=== PATIENT | female | born 1975 | race Caucasian/White ===

== ENCOUNTER 2017-04-05 20:15 | Emergency (ER) | payer OTHER, MEDICAID ==
[~2017-04-05] VITALS: Ht 170.2 cm; Wt 59.0 kg
[~2017-04-05 20:15] MED LIST: AMLODIPINE BESY10 MG PO; BENTYL 10 MG CA10 M1; BUTALB-APAP-CA1 EACH PO; CHLORTHALIDONE25 MG PO; COLACE100 MG; DELSYM COU30 MG/5 M1 PO; DEPAKOTE 250MG250 M1; HYDROCODONE-AP1 EAC6 PO; LASIX 40 MG TAB40 M2; LOPRESSOR50; METHOCARBAMOL500 M2 PO; ONDANSETRON HCL4 M2; ONDANSETRON HCL4 M2 PO; PAXIL10 MG; PAXIL10 MG PO; PENICILLIN V P500 MG PO; PHENERGAN 25 MG25 M1 PO; POTASSIUM20 PO; PREDNISONE 20 M20 M1 PO; PROAIR HFA8.5 GM INH; XANAX 0.5 MG0.5 MG PO; ZOFRAN ODT4 MG PO; ZOFRAN4 MG PO
[2017-04-05 20:45] LABS: HEMOGLOBIN 9.3 gm/dL (12.0-15.0); MCH 25.3 pg (26.0-34.0); MCHC 29.9 g/dL (28.0-37.0); NUCLEATED RBCS 0 /100WBC
[2017-04-05 20:47] LABS: MCV 84.7 fL (80.0-100.0); MPV 8.6 fl. (7.2-11.1); PLATELET COUNT* 180 thou/uL (150-400); RBC 3.66 mil/uL (4.20-5.00); RDW-CV 21.5 % (10.5-14.5); WBC 7.6 thou/uL (4.0-11.0)
[2017-04-05 20:55] LABS: ANION GAP 12 mmol/L (7-16); BUN 6 mg/dL (7-18); CALCIUM 8.4 mg/dL (8.5-10.1); CHLORIDE 106 mmol/L (98-107); CO2 23 mmol/L (21-32); CREATININE 0.8 mg/dL (0.6-1.3); GLUCOSE 74 mg/dL (70-99); POTASSIUM 3.8 mmol/L (3.5-5.1); SODIUM 141 mmol/L (136-145)
[2017-04-05 20:57] LABS: INR 1.1; PROTIME 10.3 Seconds (9.20-11.50)
[2017-04-05 21:13] LABS: ALBUMIN 3.3 g/dL (3.4-5.0); ALKALINE PHOSPHATASE 46 U/L (46-116); CK-MB MASS < 0.5 ng/mL (<0.5-3.6); LIPASE 61 U/L (73-393); MAGNESIUM 1.9 mg/dL (1.8-2.4); NT-PRO BRAIN NAT PEPTIDE 681 pg/mL (<300); SGOT 14 U/L (15-37); SGPT 8 U/L (30-65); TOTAL BILIRUBIN 0.3 mg/dL (<0.1-1.0); TOTAL PROTEIN 6.4 g/dL (6.4-8.2); TROPONIN-I LEVEL <0.06 ng/mL (<0.06)
[2017-04-05 21:20] LABS: ABSOLUTE BASOPHILS 0.1 thou/uL (0.0-0.2); ABSOLUTE EOSINOPHILS 0.2 thou/uL (0.0-0.7); ABSOLUTE MONOCYTES 0.2 thou/uL (0.0-1.2); ABSOLUTE NEUTROPHILS 6.2 thou/uL (1.6-8.1)
[2017-04-05 21:21] LABS: ANISOCYTOSIS 2+; OVALOCYTES Occasional; PLATELET ESTIMATE ADEQUATE
[2017-04-05] MEDS ORDERED: TRAMADOL 50 MG50 MG PO (22:57)
[2017-04-05] MEDS ORDERED: FLEXERIL PO (23:06)
[2017-04-05 23:15] VITALS: BP 143/84
--- NOTE | 2017-04-06 16:43 | EKG ---
[place] [address] ELECTROCARDIOGRAM REPORT Name: BARBIE BHATTI Room: [facility]#: [id number] Admission: 04/05/17 Attend Phys: Discharge: 04/05/17 Date of : 75 Report #: [id number] THIS REPORT FOR: //name// [facility] ED Test Date: 2017-04-05 Test Time: 20:19:43 Pat Name: BARBIE DAVY Department: Room: Gender: F Senior Sales Manager: BUSHRA : 1975 Requested By: Carlos Troncoso Order Number: [id number] MD: Jace Frausto Measurements Intervals [place] Rate: 105 P: 58 [place]: 125 QRS: 50 QRSD: 108 T: 58 QT: 369 QTc: 488 Interpretive Statements Sinus tachycardia Minimal ST depression, anterolateral leads Borderline prolonged QT interval Baseline wander in lead(s) I,II,aVR Compared to ECG 01/03/2017 10:30:26 Sinus rhythm no longer present Left ventricular hypertrophy no longer present Electronically Signed On 04-06-2017 16:43:39 CARE INFORMATION ASSOCIATE by Jace Frausto [email or web address] <ELECTRONICALLY SIGNED> By: Jace Frausto MD, FACC 04/06/17 1643 18 18 Jace Frausto MD, FACC /EPI
== END 2017-04-05 23:15 | disposition home or self-care (01) ==
LOC: M.ERS 20:15
PROVIDERS: Family Medicine
DX: R07.9 Chest pain, unspecified (principal); I10 Essential (primary) hypertension; Z98.890 Other specified postprocedural states; Z88.5 Allergy status to narcotic agent; Z88.6 Allergy status to analgesic agent

== ENCOUNTER 2017-05-14 17:33 | Emergency (ER) | payer OTHER, MEDICAID ==
[~2017-05-14] VITALS: Ht 170.2 cm; Wt 61.2 kg
[~2017-05-14 17:33] MED LIST changes: +FLEXERIL PO; +TRAMADOL 50 MG50 MG PO
[2017-05-14] MEDS ORDERED: LEXAPRO 10 MG T10 M1 PO (17:45)
[2017-05-14] MEDS ORDERED: PROTONIX40 M1 PO (17:45)
[2017-05-14] MEDS ORDERED: ATIVAN1 MG PO (17:46)
[2017-05-14] MEDS ORDERED: TRAMADOL 50 MG50 MG PO (17:54)
[2017-05-14 18:04] VITALS: BP 150/80
== END 2017-05-14 18:07 | disposition home or self-care (01) ==
LOC: M.ERS 17:33
DX: K08.89 Other specified disorders of teeth and supporting structures (principal); I10 Essential (primary) hypertension; I71.9 Aortic aneurysm of unspecified site, without rupture; Z98.890 Other specified postprocedural states; Z88.5 Allergy status to narcotic agent; Z88.6 Allergy status to analgesic agent

== ENCOUNTER 2017-08-18 15:51 | Emergency (ER) | payer OTHER, MEDICAID ==
[~2017-08-18] VITALS: Ht 170.2 cm; Wt 56.7 kg
[~2017-08-18 15:51] MED LIST changes: +ATIVAN1 MG PO; +LEXAPRO 10 MG T10 M1 PO; +PROTONIX40 M1 PO
[2017-08-18] MEDS ORDERED: RANITIDINE HCL300 MG PO (16:09)
[2017-08-18] MEDS ORDERED: PHENERGAN 25 MG25 M1 PO (16:09)
[2017-08-18] MEDS ORDERED: CHLORTHALIDONE25 MG PO (16:09)
[2017-08-18] MEDS ORDERED: NORCO 10-325 T1 EACH PO (16:10)
[2017-08-18] MEDS ORDERED: QUETIAPINE FUM100 MG PO (16:10)
[2017-08-18 16:57] LABS: ABSOLUTE EOSINOPHILS 0.1 thou/uL (0.0-0.7); ABSOLUTE LYMPHOCYTES 0.7 thou/uL (0.8-5.3); ABSOLUTE MONOCYTES 0.4 thou/uL (0.0-1.2); ABSOLUTE NEUTROPHILS 4.1 thou/uL (1.6-8.1); BASOPHILS 0.4 %; EOSINOPHILS 2.5 %; HEMOGLOBIN 10.1 gm/dL (12.0-15.0); LYMPHOCYTES 13.8 %; MCH 24.5 pg (26.0-34.0); MCHC 31.5 g/dL (28.0-37.0); MCV 77.7 fL (80.0-100.0); MONOCYTES 6.7 %; MPV 7.2 fl. (7.2-11.1); NUCLEATED RBCS 0 /100WBC; PLATELET COUNT* 289 thou/uL (150-400); POLYS 76.6 %; RBC 4.11 mil/uL (4.20-5.00); RDW-CV 17.7 % (10.5-14.5); WBC 5.4 thou/uL (4.0-11.0)
[2017-08-18 17:13] LABS: ANION GAP 10 mmol/L (7-16); BUN 9 mg/dL (7-18); CALCIUM 9.1 mg/dL (8.5-10.1); CHLORIDE 104 mmol/L (98-107); CO2 28 mmol/L (21-32); CREATININE 0.8 mg/dL (0.6-1.3); GLUCOSE 84 mg/dL (70-99); SODIUM 142 mmol/L (136-145)
[2017-08-18 17:18] LABS: ALBUMIN 3.7 g/dL (3.4-5.0); ALKALINE PHOSPHATASE 78 U/L (46-116); SGOT 9 U/L (15-37); SGPT 10 U/L (30-65); TOTAL BILIRUBIN 0.3 mg/dL (<0.1-1.0); TOTAL PROTEIN 7.1 g/dL (6.4-8.2); TROPONIN-I LEVEL <0.06 ng/mL (<0.06)
[2017-08-18] MEDS ORDERED: NORCO 5-325 TA1 EACH PO (17:35)
[2017-08-18] MEDS ORDERED: ROBAXIN 750 MG750 M1 PO (17:35)
[2017-08-18 17:45] VITALS: BP 134/85
--- NOTE | 2017-08-19 11:41 | EKG ---
[place] [address] ELECTROCARDIOGRAM REPORT Name: BARBIE BHATTI Room: [facility]#: [id number] Admission: 08/18/17 Attend Phys: Discharge: 08/18/17 Date of : 75 Report #: [id number] THIS REPORT FOR: //name// [facility] ED Test Date: 2017-08-18 Test Time: 16:41:38 Pat Name: BARBIE BHATTI Department: Room: Gender: F Supervisor Special Education: KIKI : 1975 Requested By: Mesha Mesa Order Number: [id number] MD: Isrrael Vazquez Measurements Intervals [place] Rate: 89 P: 38 TN: 123 QRS: 54 QRSD: 110 T: 74 QT: 376 QTc: 458 Interpretive Statements Sinus rhythm Probable left atrial enlargement Nonspecific T abnrm, anterolateral leads Baseline wander in lead(s) I,aVR Compared to ECG 04/05/2017 20:19:43 Sinus tachycardia no longer present ST (T wave) deviation no longer present Electronically Signed On 08-19-2017 11:41:23 CDT by Isrrael Vazquez [email or web address] <ELECTRONICALLY SIGNED> By: Isrrael Vazquez MD, [facility] 08/19/17 1141 1641 1641 Isrrael Vazquez MD, [facility] /EPI
== END 2017-08-18 17:46 | disposition home or self-care (01) ==
LOC: M.ERS 15:51
PROVIDERS: Nurse Practitioner Family
DX: M54.6 Pain in thoracic spine (principal); R07.89 Other chest pain; I10 Essential (primary) hypertension; F41.9 Anxiety disorder, unspecified; I71.9 Aortic aneurysm of unspecified site, without rupture; Z88.5 Allergy status to narcotic agent; Z88.6 Allergy status to analgesic agent

== ENCOUNTER 2017-10-13 07:54 | Emergency (ER) | payer OTHER, MEDICAID ==
[~2017-10-13] VITALS: Ht 172.7 cm; Wt 59.0 kg
[~2017-10-13 07:54] MED LIST changes: +NORCO 10-325 T1 EACH PO; +NORCO 5-325 TA1 EACH PO; +QUETIAPINE FUM100 MG PO; +RANITIDINE HCL300 MG PO; +ROBAXIN 750 MG750 M1 PO
[2017-10-13] MEDS ORDERED: CYCLOBENZAPRINE5 MG PO (10:10)
[2017-10-13] MEDS ORDERED: PERCOCET 7.5-31 EAC1 PO (10:10)
[2017-10-13 10:25] VITALS: BP 143/82
== END 2017-10-13 10:27 | disposition home or self-care (01) ==
LOC: M.ERS 07:54
DX: G89.29 Other chronic pain (principal); M54.6 Pain in thoracic spine; R06.02 Shortness of breath; I10 Essential (primary) hypertension; F41.9 Anxiety disorder, unspecified; Z98.890 Other specified postprocedural states; Z88.5 Allergy status to narcotic agent; Z88.6 Allergy status to analgesic agent; Z88.8 Allergy status to other drugs, medicaments and biological substances

== ENCOUNTER 2017-10-24 15:35 | Emergency (ER) | payer OTHER, MEDICAID ==
[~2017-10-24] VITALS: Ht 170.2 cm; Wt 61.7 kg
[~2017-10-24 15:35] MED LIST changes: +CYCLOBENZAPRINE5 MG PO; +PERCOCET 7.5-31 EAC1 PO
[2017-10-24] MEDS ORDERED: GABAPENTIN 100100 MG PO (16:49)
[2017-10-24 16:58] VITALS: BP 145/80
== END 2017-10-24 16:58 | disposition home or self-care (01) ==
LOC: M.ERS 15:35
DX: S30.0XXA Contusion of lower back and pelvis, initial encounter (principal); I10 Essential (primary) hypertension; F41.9 Anxiety disorder, unspecified; Z88.5 Allergy status to narcotic agent; Z88.6 Allergy status to analgesic agent; Z88.8 Allergy status to other drugs, medicaments and biological substances; X58.XXXA Exposure to other specified factors, initial encounter; Y93.89 Activity, other specified; Y92.89 Other specified places as the place of occurrence of the external cause; Y99.8 Other external cause status

== ENCOUNTER 2017-11-01 10:37 | Emergency (ER) | payer OTHER, MEDICAID ==
[~2017-11-01] VITALS: Ht 172.7 cm; Wt 59.0 kg
[~2017-11-01 10:37] MED LIST changes: +GABAPENTIN 100100 MG PO
[2017-11-01 11:13] LABS: HEMOGLOBIN 9.4 gm/dL (12.0-15.0); MPV 7.6 fl. (7.2-11.1); WBC 5.6 thou/uL (4.0-11.0)
[2017-11-01 11:15] LABS: HEMATOCRIT 29.8 % (37.0-47.0); MCH 24.7 pg (26.0-34.0); MCHC 31.6 g/dL (28.0-37.0); MCV 78.1 fL (80.0-100.0); NUCLEATED RBCS 0 /100WBC; PLATELET COUNT* 247 thou/uL (150-400); RBC 3.81 mil/uL (4.20-5.00); RDW-CV 17.4 % (10.5-14.5)
[2017-11-01 11:21] LABS: ANION GAP 7 mmol/L (7-16); BUN 11 mg/dL (7-18); CALCIUM 8.1 mg/dL (8.5-10.1); CHLORIDE 105 mmol/L (98-107); CO2 26 mmol/L (21-32); CREATININE 0.7 mg/dL (0.6-1.3); GLUCOSE 87 mg/dL (70-99); POTASSIUM 4.2 mmol/L (3.5-5.1); SODIUM 138 mmol/L (136-145)
[2017-11-01 11:28] LABS: ALBUMIN 3.4 g/dL (3.4-5.0); ALKALINE PHOSPHATASE 79 U/L (46-116); SGOT 7 U/L (15-37); SGPT 8 U/L (30-65); TOTAL BILIRUBIN 0.2 mg/dL (<0.1-1.0); TOTAL PROTEIN 6.8 g/dL (6.4-8.2); TROPONIN-I LEVEL <0.06 ng/mL (<0.06)
[2017-11-01 11:43] LABS: ABSOLUTE EOSINOPHILS 0.2 thou/uL (0.0-0.7); ABSOLUTE LYMPHOCYTES 0.8 thou/uL (0.8-5.3); ABSOLUTE MONOCYTES 0.4 thou/uL (0.0-1.2); ABSOLUTE NEUTROPHILS 4.1 thou/uL (1.6-8.1); PLATELET ESTIMATE ADEQUATE
[2017-11-01] MEDS ORDERED: NORCO 5-325 TA1 EACH PO (12:52)
[2017-11-01 13:06] VITALS: BP 138/79
--- NOTE | 2017-11-02 09:38 | EKG ---
[place] [address] ELECTROCARDIOGRAM REPORT Name: DAVYBARBIE J Room: [facility]#: [id number] Admission: 11/01/17 Attend Phys: Discharge: 11/01/17 Date of : 75 Report #: [id number] THIS REPORT FOR: //name// [facility] ED Test Date: 2017-11-01 Test Time: 11:12:04 Pat Name: BARBIE DAVY Department: Room: Gender: F Bottom Loader: : 1975 Requested By: Mesha Mesa Order Number: [id number] MD: Isrrael Vazquez Measurements Intervals [place] Rate: 76 P: 61 [place]: 143 QRS: 67 QRSD: 101 T: 63 QT: 395 QTc: 445 Interpretive Statements Sinus rhythm Baseline wander in lead(s) III,aVF Compared to ECG 08/18/2017 16:41:38 No significant changes Electronically Signed On 11-02-2017 9:37:50 CDT by Isrrael Vazquez [email or web address] <ELECTRONICALLY SIGNED> By: Isrrael Vazquez MD, [facility] 11/02/17 0937 1112 111 Isrrael Vazquez MD, [facility] /EPI
== END 2017-11-01 13:06 | disposition home or self-care (01) ==
LOC: M.ERS 10:37
PROVIDERS: Nurse Practitioner Family
DX: S92.501A Displaced unspecified fracture of right lesser toe(s), initial encounter for closed fracture (principal); J20.9 Acute bronchitis, unspecified; I10 Essential (primary) hypertension; F41.9 Anxiety disorder, unspecified; Z98.890 Other specified postprocedural states; Z88.5 Allergy status to narcotic agent; Z88.6 Allergy status to analgesic agent; Z88.8 Allergy status to other drugs, medicaments and biological substances; W23.0XXA Caught, crushed, jammed, or pinched between moving objects, initial encounter; Y93.89 Activity, other specified; Y92.89 Other specified places as the place of occurrence of the external cause; Y99.8 Other external cause status

== ENCOUNTER 2017-11-28 17:35 | Emergency (ER) | payer OTHER, MEDICAID ==
[~2017-11-28] VITALS: Ht 170.2 cm; Wt 61.6 kg
[2017-11-28 19:33] VITALS: BP 136/77
== END 2017-11-28 19:34 | disposition home or self-care (01) ==
LOC: M.ERS 17:35
DX: S00.83XA Contusion of other part of head, initial encounter (principal); S13.4XXA Sprain of ligaments of cervical spine, initial encounter; S29.012A Strain of muscle and tendon of back wall of thorax, initial encounter; W19.XXXA Unspecified fall, initial encounter; Y93.89 Activity, other specified; Y92.89 Other specified places as the place of occurrence of the external cause; Y99.8 Other external cause status; I10 Essential (primary) hypertension; F41.9 Anxiety disorder, unspecified; Z98.890 Other specified postprocedural states; Z88.5 Allergy status to narcotic agent; Z88.6 Allergy status to analgesic agent; Z88.8 Allergy status to other drugs, medicaments and biological substances

== ENCOUNTER 2018-01-23 16:08 | Emergency (ER) | payer OTHER, MEDICAID ==
[~2018-01-23] VITALS: Ht 170.2 cm; Wt 59.0 kg
[2018-01-23 16:41] LABS: HEMATOCRIT 36.4 % (37.0-47.0); HEMOGLOBIN 11.3 gm/dL (12.0-15.0); MCH 23.5 pg (26.0-34.0); MCHC 31.1 g/dL (28.0-37.0); MCV 75.5 fL (80.0-100.0); MPV 7.9 fl. (7.2-11.1); NUCLEATED RBCS 0 /100WBC; PLATELET COUNT* 358 thou/uL (150-400); RBC 4.83 mil/uL (4.20-5.00); RDW-CV 18.3 % (10.5-14.5); WBC 10.9 thou/uL (4.0-11.0)
[2018-01-23 16:53] LABS: ANION GAP 12 mmol/L (7-16); BUN 11 mg/dL (7-18); CALCIUM 9.4 mg/dL (8.5-10.1); CHLORIDE 100 mmol/L (98-107); CO2 25 mmol/L (21-32); CREATININE 0.9 mg/dL (0.6-1.3); GLUCOSE 87 mg/dL (70-99); POTASSIUM 3.6 mmol/L (3.5-5.1); SODIUM 137 mmol/L (136-145)
[2018-01-23 17:03] LABS: ALBUMIN 4.4 g/dL (3.4-5.0); ALKALINE PHOSPHATASE 69 U/L (46-116); LIPASE 121 U/L (73-393); MAGNESIUM 2.1 mg/dL (1.8-2.4); NT-PRO BRAIN NAT PEPTIDE 482 pg/mL (<300); SGOT 12 U/L (15-37); SGPT 10 U/L (30-65); TOTAL BILIRUBIN 0.4 mg/dL (<0.1-1.0); TOTAL PROTEIN 8.2 g/dL (6.4-8.2); TROPONIN-I LEVEL <0.06 ng/mL (<0.06)
[2018-01-23 17:08] LABS: ABSOLUTE BASOPHILS 0.1 thou/uL (0.0-0.2); ABSOLUTE EOSINOPHILS 0.4 thou/uL (0.0-0.7); ABSOLUTE MONOCYTES 0.7 thou/uL (0.0-1.2); ABSOLUTE NEUTROPHILS 8.7 thou/uL (1.6-8.1); ANISOCYTOSIS 1+; PLATELET ESTIMATE ADEQUATE; SCHISTOCYTES Occasional
[2018-01-23 17:09] LABS: OVALOCYTES 1+; TEARDROPS Occasional
[2018-01-23 17:11] LABS: TOXIC GRANULATION 1+
[2018-01-23 17:12] LABS: HYPOCHROMASIA 1+; POIKILOCYTOSIS Occasional
[2018-01-23 19:57] VITALS: BP 159/76
--- NOTE | 2018-01-25 11:10 | EKG ---
[place] [address] ELECTROCARDIOGRAM REPORT Name: BARBIE BHATTI Room: [facility]#: [id number] Admission: 01/23/18 Attend Phys: Discharge: 01/23/18 Date of : 75 Report #: [id number] THIS REPORT FOR: //name// [facility] ED Test Date: 2018-01-23 Test Time: 16:15:28 Pat Name: BARBIE BHATTI Department: Room: Gender: F V[employer]: Kyle MELENDEZ : 1975 Requested By: Tristian Ledezma Order Number: [id number] MD: Isrrael Vazquez Measurements Intervals [place] Rate: 70 P: 60 PA: 120 QRS: 70 QRSD: 100 T: 74 QT: 383 QTc: 414 Interpretive Statements Sinus rhythm Probable left atrial enlargement Left ventricular hypertrophy Abnrm T, consider ischemia, anterolateral lds Baseline wander in lead(s) II Compared to ECG 11/01/2017 11:12:04 Left ventricular hypertrophy now present Possible ischemia now present Electronically Signed On 01-25-2018 11:10:26 C SOFTWARE ENGINEER by Isrrael Vazquez [email or web address] <ELECTRONICALLY SIGNED> By: Isrrael Vazquez MD, FACC 01/25/18 1110 1615 1615 Isrrael Vazquez MD, FAC /EPI
--- NOTE | 2018-01-25 11:11 | EKG ---
[place] [address] ELECTROCARDIOGRAM REPORT Name: BARBIE BHATTI Room: [facility]#: [id number] Admission: 01/23/18 Attend Phys: Discharge: 01/23/18 Date of : 75 Report #: [id number] THIS REPORT FOR: //name// [facility] ED Test Date: 2018-01-23 Test Time: 18:14:44 Pat Name: BARBIE BHATTI Department: Room: Gender: F Tamale Maker: Kyle MELENDEZ : 1975 Requested By: Tristian Ledezma Order Number: [id number] MD: Isrrael Vazquez Measurements Intervals [place] Rate: 76 P: 66 [place]: 141 QRS: 63 QRSD: 109 T: 67 QT: 416 QTc: 468 Interpretive Statements artifacts Sinus rhythm Probable left ventricular hypertrophy Abnormal T, consider ischemia, anterior leads Compared to ECG 11/01/2017 11:12:04 T-wave abnormality now present Possible ischemia now present Electronically Signed On 01-25-2018 11:11:07 WOOD MACHINE CARVER by Isrrael Vazquez [email or web address] <ELECTRONICALLY SIGNED> By: Isrrael Vazquez MD, FACC 01/25/18 1111 181 181 Isrrael Vazquez MD, FAC /EPI
== END 2018-01-23 20:10 | disposition short-term general hospital (02) ==
LOC: M.ERS 16:08
PROVIDERS: Emergency Medicine Emergency Medical Services
DX: R07.89 Other chest pain (principal); I10 Essential (primary) hypertension; F41.9 Anxiety disorder, unspecified; G89.29 Other chronic pain; Z98.890 Other specified postprocedural states; Z88.5 Allergy status to narcotic agent; Z88.6 Allergy status to analgesic agent; Z88.8 Allergy status to other drugs, medicaments and biological substances

== ENCOUNTER 2018-01-30 13:39 | Emergency (ER) | payer OTHER, MEDICAID ==
[~2018-01-30] VITALS: Ht 172.7 cm; Wt 59.0 kg
[2018-01-30 15:14] LABS: HEMATOCRIT 34.8 % (37.0-47.0); HEMOGLOBIN 10.6 gm/dL (12.0-15.0); MCH 23.5 pg (26.0-34.0); MCHC 30.3 g/dL (28.0-37.0); MCV 77.5 fL (80.0-100.0); MPV 8.2 fl. (7.2-11.1); NUCLEATED RBCS 0 /100WBC; PLATELET COUNT* 298 thou/uL (150-400); RBC 4.49 mil/uL (4.20-5.00); RDW-CV 19.1 % (10.5-14.5); WBC 9.1 thou/uL (4.0-11.0)
[2018-01-30 15:22] LABS: INFLUENZA A ANTIGEN None Detected (None Detect); INFLUENZA B ANTIGEN None Detected (None Detect)
[2018-01-30 15:24] LABS: ANION GAP 14 mmol/L (7-16); BUN 13 mg/dL (7-18); CHLORIDE 102 mmol/L (98-107); CO2 24 mmol/L (21-32); CREATININE 0.8 mg/dL (0.6-1.3); GLUCOSE 76 mg/dL (70-99); POTASSIUM 3.8 mmol/L (3.5-5.1); SODIUM 140 mmol/L (136-145)
[2018-01-30 15:30] LABS: APTT 26.1 Seconds (25.0-31.3); INR 0.9; PROTIME 9.7 Seconds (9.20-11.50)
[2018-01-30 15:34] LABS: ALBUMIN 3.9 g/dL (3.4-5.0); ALKALINE PHOSPHATASE 58 U/L (46-116); NT-PRO BRAIN NAT PEPTIDE 602 pg/mL (<300); SGOT 11 U/L (15-37); SGPT 11 U/L (30-65); TOTAL BILIRUBIN 0.4 mg/dL (<0.1-1.0); TOTAL PROTEIN 7.2 g/dL (6.4-8.2); TROPONIN-I LEVEL <0.06 ng/mL (<0.06)
[2018-01-30 15:59] LABS: ABSOLUTE LYMPHOCYTES 1.4 thou/uL (0.8-5.3); ABSOLUTE MONOCYTES 0.6 thou/uL (0.0-1.2); ABSOLUTE NEUTROPHILS 7.1 thou/uL (1.6-8.1); ATYPICAL LYMPHS 1 %
[2018-01-30 16:00] LABS: ANISOCYTOSIS 1+; HYPOCHROMASIA 1+; PLATELET ESTIMATE ADEQUATE; POIKILOCYTOSIS 1+
[2018-01-30] MEDS ORDERED: ZPAK PO (18:27)
[2018-01-30] MEDS ORDERED: VENTOLIN HFA 1818 GM INH (18:27)
[2018-01-30] MEDS ORDERED: DELSYM COU30 MG/5 M1 PO (18:27)
[2018-01-30 18:34] VITALS: BP 160/88
--- NOTE | 2018-01-31 11:42 | EKG ---
[place] [address] ELECTROCARDIOGRAM REPORT Name: DAVYBARBIE Kyle Room: [facility]#: [id number] Admission: 01/30/18 Attend Phys: Discharge: 01/30/18 Date of : 75 Report #: [id number] THIS REPORT FOR: //name// [facility] ED Test Date: 2018-01-30 Test Time: 14:26:23 Pat Name: BARBIE DAVY Department: Room: Gender: F Bill Board Poster: Kyle PLASENCIA : 1975 Requested By: Janine Larson Order Number: [id number] MD: Jace Frausto Measurements Intervals [place] Rate: 74 P: 68 [place]: 136 QRS: 77 QRSD: 101 T: 70 QT: 402 QTc: 446 Interpretive Statements Sinus rhythm Nonspecific T abnrm, anterolateral leads Baseline wander in lead(s) II,III,aVR,aVF Compared to ECG 01/23/2018 18:14:44 no change Electronically Signed On 01-31-2018 11:41:47 HOUSING LIAISON by Jace Frausto [email or web address] <ELECTRONICALLY SIGNED> By: Jace Frausto MD, FACC 01/31/18 1141 1426 1426 Jace Frausto MD, FAC /EPI
--- NOTE | 2018-01-31 11:43 | EKG ---
[place] [address] ELECTROCARDIOGRAM REPORT Name: BARBIE BHATTI [id number] Admission: 01/30/18 Attend Phys: Discharge: 01/30/18 Date of : 75 Report #: [id number] THIS REPORT FOR: //name// [facility] ED Test Date: 2018-01-30 Test Time: 14:41:18 Pat Name: BARBIE DAVY Department: Room: Gender: F Enrollment Advisor: Kyle PLASENCIA : 1975 Requested By: Steffanie Jones Order Number: [id number] MD: Jace Frausto Measurements Intervals [place] Rate: 68 P: 73 [place]: 151 QRS: 65 QRSD: 102 T: 71 QT: 413 QTc: 440 Interpretive Statements Sinus rhythm Left atrial enlargement Abnrm T, consider ischemia, anterolateral lds Electronically Signed On 01-31-2018 11:43:06 BACK WINDER by Jace Frausto [email or web address] <ELECTRONICALLY SIGNED> By: Jace Frausto MD, [facility] 01/31/18 1143 1441 1441 Jace Frausto MD, FACC /EPI
== END 2018-01-30 18:35 | disposition home or self-care (01) ==
LOC: M.ERS 13:39
PROVIDERS: Nurse Practitioner Family
DX: J40 Bronchitis, not specified as acute or chronic (principal); J02.0 Streptococcal pharyngitis; I10 Essential (primary) hypertension; F41.9 Anxiety disorder, unspecified; G89.29 Other chronic pain; Z98.890 Other specified postprocedural states; Z88.5 Allergy status to narcotic agent; Z88.6 Allergy status to analgesic agent

== ENCOUNTER 2018-03-30 06:43 | Emergency (ER) | payer OTHER, MEDICAID ==
[~2018-03-30] VITALS: Ht 170.2 cm; Wt 57.6 kg
[~2018-03-30 06:43] MED LIST changes: +VENTOLIN HFA 1818 GM INH; +ZPAK PO
[2018-03-30] MEDS ORDERED: ULTRAM 50MG TAB50 MG PO (08:52)
[2018-03-30 09:00] VITALS: BP 145/89
== END 2018-03-30 09:39 | disposition home or self-care (01) ==
LOC: M.ERS 06:43
DX: M54.9 Dorsalgia, unspecified (principal); I10 Essential (primary) hypertension; F41.9 Anxiety disorder, unspecified; G89.29 Other chronic pain; Z88.5 Allergy status to narcotic agent; Z88.8 Allergy status to other drugs, medicaments and biological substances; Z88.6 Allergy status to analgesic agent; Z98.890 Other specified postprocedural states; W00.0XXA Fall on same level due to ice and snow, initial encounter; Y92.89 Other specified places as the place of occurrence of the external cause; Y93.89 Activity, other specified; Y99.8 Other external cause status

== ENCOUNTER 2018-06-21 11:34 | Emergency (ER) | payer OTHER, MEDICAID ==
[~2018-06-21] VITALS: Ht 172.7 cm; Wt 56.7 kg
[~2018-06-21 11:34] MED LIST changes: +ULTRAM 50MG TAB50 MG PO
[2018-06-21] MEDS ORDERED: QUETIAPINE FUM100 MG PO (11:48)
[2018-06-21] MEDS ORDERED: NORCO 5-325 TA1 EACH PO (11:59)
[2018-06-21] MEDS ORDERED: AMOXICILLIN 50500 MG PO (11:59)
[2018-06-21] MEDS ORDERED: CHLORHEXADINE120 M1 SWISH&SPIT (11:59)
[2018-06-21] MEDS ORDERED: IBUPROFEN 600600 M1 PO (11:59)
[2018-06-21 12:04] VITALS: BP 143/89
== END 2018-06-21 12:08 | disposition home or self-care (01) ==
LOC: M.ERS 11:34
DX: G89.18 Other acute postprocedural pain (principal); K08.89 Other specified disorders of teeth and supporting structures; I10 Essential (primary) hypertension; F41.9 Anxiety disorder, unspecified; Z88.8 Allergy status to other drugs, medicaments and biological substances; Z98.890 Other specified postprocedural states

== ENCOUNTER 2018-07-14 09:08 | Emergency (ER) | payer OTHER, MEDICAID ==
[~2018-07-14] VITALS: Ht 172.7 cm; Wt 56.7 kg
[~2018-07-14 09:08] MED LIST changes: +AMOXICILLIN 50500 MG PO; +CHLORHEXADINE120 M1 SWISH&SPIT; +IBUPROFEN 600600 M1 PO
[2018-07-14] MEDS ORDERED: NORCO 5-325 TA1 EACH PO (09:56)
[2018-07-14 10:08] VITALS: BP 124/82
== END 2018-07-14 10:09 | disposition home or self-care (01) ==
LOC: M.ERS 09:08
DX: S92.511A Displaced fracture of proximal phalanx of right lesser toe(s), initial encounter for closed fracture (principal); I10 Essential (primary) hypertension; F41.9 Anxiety disorder, unspecified; G89.29 Other chronic pain; Z88.5 Allergy status to narcotic agent; Z88.6 Allergy status to analgesic agent; Z88.8 Allergy status to other drugs, medicaments and biological substances; Z98.890 Other specified postprocedural states; V00.181A Fall from other rolling-type pedestrian conveyance, initial encounter; Y92.89 Other specified places as the place of occurrence of the external cause; Y93.89 Activity, other specified; Y99.8 Other external cause status

== ENCOUNTER 2018-08-24 09:57 | Emergency (ER) | payer OTHER, MEDICAID ==
[~2018-08-24] VITALS: Ht 172.7 cm; Wt 51.7 kg
[2018-08-24] MEDS ORDERED: TRAMADOL 50 MG50 MG PO (10:44)
[2018-08-24] MEDS ORDERED: PENICILLIN V P500 MG PO (10:44)
[2018-08-24 10:55] VITALS: BP 139/88
== END 2018-08-24 10:55 | disposition home or self-care (01) ==
LOC: M.ERS 09:57
DX: K08.89 Other specified disorders of teeth and supporting structures (principal); I10 Essential (primary) hypertension; F41.9 Anxiety disorder, unspecified; G89.29 Other chronic pain; Z88.5 Allergy status to narcotic agent; Z88.6 Allergy status to analgesic agent; Z88.8 Allergy status to other drugs, medicaments and biological substances; Z98.890 Other specified postprocedural states

== ENCOUNTER 2018-10-06 19:01 | Emergency (ER) | payer OTHER, MEDICAID ==
[~2018-10-06] VITALS: Ht 172.7 cm; Wt 45.4 kg
[~2018-10-06 19:01] MED LIST changes: +LOPRESSOR100 M1 PO; -LOPRESSOR50
[2018-10-06] MEDS ORDERED: PRAZOSIN 1 MG CA1 M1 PO (19:25)
[2018-10-06] MEDS ORDERED: ATIVAN1 M1 PO (19:26)
[2018-10-06] MEDS ORDERED: PROZAC20 MG PO (19:26)
[2018-10-06] MEDS ORDERED: TRAMADOL 50 MG50 MG PO (19:55)
[2018-10-06] MEDS ORDERED: LIDOCAINE VISC100 ML SWISH&SPIT (19:55)
[2018-10-06 20:04] VITALS: BP 148/95
== END 2018-10-06 20:04 | disposition home or self-care (01) ==
LOC: M.ERS 19:01
DX: K08.89 Other specified disorders of teeth and supporting structures (principal); I10 Essential (primary) hypertension; F41.9 Anxiety disorder, unspecified; G89.29 Other chronic pain; Z88.5 Allergy status to narcotic agent; Z88.6 Allergy status to analgesic agent; Z98.51 Tubal ligation status; Z98.890 Other specified postprocedural states; Z88.8 Allergy status to other drugs, medicaments and biological substances

== ENCOUNTER 2018-11-13 13:34 | Emergency (ER) | payer OTHER, MEDICAID ==
[~2018-11-13] VITALS: Ht 172.7 cm; Wt 49.9 kg
[~2018-11-13 13:34] MED LIST changes: +ATIVAN1 M1 PO; +LIDOCAINE VISC100 ML SWISH&SPIT; +PRAZOSIN 1 MG CA1 M1 PO; +PROZAC20 MG PO
[2018-11-13 13:51] LABS: HEMATOCRIT 38.9 % (37.0-47.0); HEMOGLOBIN 12.9 gm/dL (12.0-15.0); MCHC 33.1 g/dL (28.0-37.0); MCV 90.7 fL (80.0-100.0); MPV 8.1 fl. (7.2-11.1); NUCLEATED RBCS 0 /100WBC; PLATELET COUNT* 198 thou/uL (150-400); RBC 4.29 mil/uL (4.20-5.00); RDW-CV 14.8 % (10.5-14.5); WBC 8.5 thou/uL (4.0-11.0)
[2018-11-13 14:04] LABS: ANION GAP 15 mmol/L (7-16); BUN 11 mg/dL (7-18); CALCIUM 9.5 mg/dL (8.5-10.1); CHLORIDE 99 mmol/L (98-107); CO2 24 mmol/L (21-32); CREATININE 0.9 mg/dL (0.6-1.3); GLUCOSE 145 mg/dL (70-99); POTASSIUM 3.7 mmol/L (3.5-5.1); SODIUM 138 mmol/L (136-145)
[2018-11-13 14:14] LABS: ALBUMIN 3.4 g/dL (3.4-5.0); ALKALINE PHOSPHATASE 106 U/L (46-116); LIPASE 39 U/L (73-393); SGOT 19 U/L (15-37); SGPT 17 U/L (30-65); TOTAL BILIRUBIN 0.4 mg/dL (<0.1-1.0); TOTAL PROTEIN 8.2 g/dL (6.4-8.2); TROPONIN-I LEVEL <0.06 ng/mL (<0.06)
[2018-11-13 14:20] LABS: ABSOLUTE EOSINOPHILS 0.1 thou/uL (0.0-0.7); ABSOLUTE LYMPHOCYTES 0.1 thou/uL (0.8-5.3); ABSOLUTE NEUTROPHILS 8.3 thou/uL (1.6-8.1); PLATELET ESTIMATE ADEQUATE
[2018-11-13 14:23] LABS: URINE BLOOD 2+ (Negative); URINE CLARITY CLEAR; URINE COLOR YELLOW; URINE GLUCOSE-RANDOM NEGATIVE (Negative); URINE KETONES TRACE (Negative); URINE LEUKOCYTES-REFLEX NEGATIVE (Negative); URINE NITRITE-REFLEX NEGATIVE (Negative); URINE PROTEIN 2+ (Negative); URINE SPECIFIC GRAVITY 1.025 (1.005-1.030); URINE UROBILINOGEN 0.2 E.U./dl (0.2-1.0)
[2018-11-13 14:24] LABS: ICTOTEST (BILI CONFIRMATORY) Positive (Negative); URINE BILIRUBIN 2+ (Negative)
[2018-11-13 14:35] LABS: BACTERIA-REFLEX 1-9 Few /HPF (None Seen); MUCUS >6 Heavy strn/LPF (None Seen); SQUAMOUS >10 Many /LPF (0-3)
[2018-11-13 14:36] LABS: URINE RBC 3-10 Few /HPF (0-2); URINE WBC-REFLEX 0-5 Rare /HPF (0-5)
[2018-11-13 14:37] LABS: CRYSTALS None Seen /LPF (None Seen); HYALINE CASTS 0-3 Few /LPF (None Seen)
[2018-11-13] MEDS ORDERED: ZOFRAN ODT4 MG PO (15:51)
[2018-11-13] MEDS ORDERED: BENTYL 20 MG TA20 M1 PO (15:51)
[2018-11-13 16:03] VITALS: BP 157/95
--- NOTE | 2018-11-14 07:41 | EKG ---
[place] [address] ELECTROCARDIOGRAM REPORT Name: DAVYBARBIE Kyle Room: [facility]#: [id number] Admission: 11/13/18 Attend Phys: Discharge: 11/13/18 Date of : 75 Report #: [id number] THIS REPORT FOR: //name// [facility] ED Test Date: 2018-11-13 Test Time: 14:10:02 Pat Name: BARBIE DAVY Department: Room: Gender: F Maintenance Shop Clerk: : 1975 Requested By: Mali Corbin Order Number: [id number] MD: Jace Frausto Measurements Intervals [place] Rate: 77 P: 81 [place]: 133 QRS: 78 QRSD: 103 T: 70 QT: 430 QTc: 487 Interpretive Statements Sinus arrhythmia Probable left atrial enlargement Left ventricular hypertrophy Abnormal T, consider ischemia, anterior leads Baseline wander in lead(s) V1,V4 Compared to ECG 01/30/2018 14:41:18 Left ventricular hypertrophy now present Possible ischemia still present Electronically Signed On 11-14-2018 7:41:00 CDT by Jace Frausto [email or web address] <ELECTRONICALLY SIGNED> By: Jace Frausto MD, FAC 11/14/18 0741 1410 1410 Jace Frausto MD, [facility] /EPI
== END 2018-11-13 16:00 | disposition home or self-care (01) ==
LOC: M.ERS 13:34
PROVIDERS: Nurse Practitioner Family
DX: A08.4 Viral intestinal infection, unspecified (principal); R11.2 Nausea with vomiting, unspecified; I10 Essential (primary) hypertension; F41.9 Anxiety disorder, unspecified; Z88.5 Allergy status to narcotic agent; Z88.6 Allergy status to analgesic agent; Z98.890 Other specified postprocedural states

== ENCOUNTER 2018-11-15 14:23 | Inpatient (IN) | payer OTHER, MEDICAID ==
[~2018-11-15] VITALS: Ht 172.7 cm; Wt 52.2 kg
[~2018-11-15 14:23] MED LIST changes: +BENTYL 20 MG TA20 M1 PO
[2018-11-15 14:32] VITALS: BP 184/111
[2018-11-15 15:21] LABS: ABSOLUTE LYMPHOCYTES 0.2 thou/uL (0.8-5.3); ABSOLUTE MONOCYTES 0.1 thou/uL (0.0-1.2); ABSOLUTE NEUTROPHILS 9.5 thou/uL (1.6-8.1); BASOPHILS 0.1 %; EOSINOPHILS 0.2 %; HEMATOCRIT 38.4 % (37.0-47.0); HEMOGLOBIN 12.6 gm/dL (12.0-15.0); LYMPHOCYTES 2.1 %; MCH 29.5 pg (26.0-34.0); MCHC 32.8 g/dL (28.0-37.0); MCV 90.1 fL (80.0-100.0); MONOCYTES 1.2 %; MPV 7.8 fl. (7.2-11.1); NUCLEATED RBCS 0 /100WBC; PLATELET COUNT* 250 thou/uL (150-400); POLYS 96.4 %; RBC 4.26 mil/uL (4.20-5.00); RDW-CV 14.8 % (10.5-14.5); WBC 9.8 thou/uL (4.0-11.0)
[2018-11-15 15:29] LABS: CALCIUM 8.4 mg/dL (8.5-10.1); CREATININE 0.7 mg/dL (0.6-1.3); POTASSIUM 3.2 mmol/L (3.5-5.1)
[2018-11-15 15:34] LABS: ALBUMIN 3.1 g/dL (3.4-5.0); TOTAL BILIRUBIN 0.8 mg/dL (<0.1-1.0); TOTAL PROTEIN 7.7 g/dL (6.4-8.2)
[2018-11-15 16:07] LABS: PLATELET ESTIMATE ADEQUATE
[2018-11-15 17:10] VITALS: BP 176/101
[2018-11-15 17:31] VITALS: BP 149/82
[2018-11-15 22:01] VITALS: BP 107/73
[2018-11-16 03:11] LABS: AMP/METHAMP Negative (Negative); BARBITURATES Negative (Negative); BENZODIAZEPINES POSITIVE (Negative); COCAINE Negative (Negative); METHADONE Negative (Negative); OPIATES POSITIVE (Negative); PCP Negative (Negative); THC POSITIVE (Negative)
[2018-11-16 05:38] LABS: HEMATOCRIT 29.1 % (37.0-47.0); MCH 29.7 pg (26.0-34.0); MCHC 33.4 g/dL (28.0-37.0); MCV 88.8 fL (80.0-100.0); MPV 7.5 fl. (7.2-11.1); NUCLEATED RBCS 0 /100WBC; PLATELET COUNT* 205 thou/uL (150-400); RBC 3.28 mil/uL (4.20-5.00); RDW-CV 14.8 % (10.5-14.5); WBC 5.7 thou/uL (4.0-11.0)
[2018-11-16 05:44] LABS: HEMOGLOBIN 9.7 gm/dL (12.0-15.0)
[2018-11-16 05:50] LABS: CALCIUM 8.2 mg/dL (8.5-10.1); CREATININE 0.6 mg/dL (0.6-1.3)
[2018-11-16 05:57] LABS: POTASSIUM 4.3 mmol/L (3.5-5.1)
[2018-11-16 06:12] LABS: ABSOLUTE EOSINOPHILS 0.2 thou/uL (0.0-0.7); ABSOLUTE LYMPHOCYTES 0.3 thou/uL (0.8-5.3); ABSOLUTE MONOCYTES 0.1 thou/uL (0.0-1.2); ABSOLUTE NEUTROPHILS 5.1 thou/uL (1.6-8.1); ANISOCYTOSIS 1+; OVALOCYTES 1+; PLATELET ESTIMATE ADEQUATE; POIKILOCYTOSIS 1+
[2018-11-16 07:30] VITALS: BP 130/74
[2018-11-16 16:00] VITALS: BP 128/72
[2018-11-16 20:53] VITALS: BP 107/70
[2018-11-17 07:40] VITALS: BP 131/76
[2018-11-17 10:57] VITALS: BP 131/76
== END 2018-11-17 12:25 | disposition home or self-care (01) | DRG 102 ==
LOC: M.ERS 14:23 → M.TBA-ER 15:34 → M.ORTHSURG 17:03
PROVIDERS: Family Medicine; ADMIT Internal Medicine
DX: G43.A0 Cyclical vomiting, in migraine, not intractable (principal); I71.00 Dissection of unspecified site of aorta; I10 Essential (primary) hypertension; F41.9 Anxiety disorder, unspecified; G89.29 Other chronic pain; T40.7X5A Adverse effect of cannabis (derivatives), initial encounter; I16.0 Hypertensive urgency; E86.0 Dehydration; Z87.891 Personal history of nicotine dependence; Z88.6 Allergy status to analgesic agent; Z88.8 Allergy status to other drugs, medicaments and biological substances; Z95.2 Presence of prosthetic heart valve; Y92.89 Other specified places as the place of occurrence of the external cause

== ENCOUNTER 2019-08-26 23:10 | Emergency (ER) | payer OTHER, MEDICAID ==
[~2019-08-26] VITALS: Ht 172.7 cm; Wt 63.5 kg
[2019-08-27 00:29] LABS: HEMATOCRIT 37.4 % (37.0-47.0); HEMOGLOBIN 12.5 gm/dL (12.0-15.0); MCH 29.8 pg (26.0-34.0); MCHC 33.4 g/dL (28.0-37.0); MCV 89.2 fL (80.0-100.0); MPV 7.4 fl. (7.2-11.1); NUCLEATED RBCS 0 /100WBC; PLATELET COUNT* 536 thou/uL (150-400); RBC 4.19 mil/uL (4.20-5.00); RDW-CV 14.3 % (10.5-14.5); WBC 13.5 thou/uL (4.0-11.0)
[2019-08-27 00:31] LABS: CALCIUM 8.7 mg/dL (8.5-10.1); CREATININE 0.9 mg/dL (0.6-1.3); POTASSIUM 3.8 mmol/L (3.5-5.1)
[2019-08-27 00:32] LABS: PROTIME 10.4 Seconds (9.20-11.50)
[2019-08-27 00:36] LABS: ALBUMIN 2.8 g/dL (3.4-5.0)
[2019-08-27 01:00] LABS: ABSOLUTE LYMPHOCYTES 0.5 thou/uL (0.8-5.3); ABSOLUTE MONOCYTES 0.3 thou/uL (0.0-1.2); ABSOLUTE NEUTROPHILS 12.7 thou/uL (1.6-8.1)
[2019-08-27 01:02] LABS: PLATELET ESTIMATE INCREASED; TOXIC GRANULATION 1+
[2019-08-27 03:00] LABS: URINE BILIRUBIN NEGATIVE (Negative); URINE BLOOD TRACE (Negative); URINE CLARITY CLEAR; URINE COLOR YELLOW; URINE GLUCOSE-RANDOM NEGATIVE (Negative); URINE KETONES NEGATIVE (Negative); URINE LEUKOCYTES-REFLEX NEGATIVE (Negative); URINE NITRITE-REFLEX NEGATIVE (Negative); URINE PROTEIN NEGATIVE (Negative); URINE SPECIFIC GRAVITY 1.015 (1.005-1.030); URINE UROBILINOGEN 0.2 E.U./dl (0.2-1.0)
[2019-08-27 03:29] LABS: AMP/METHAMP Negative (Negative); BARBITURATES Negative (Negative); BENZODIAZEPINES POSITIVE (Negative); COCAINE Negative (Negative); METHADONE Negative (Negative); OPIATES POSITIVE (Negative); PCP Negative (Negative); THC POSITIVE (Negative)
[2019-08-27 05:34] VITALS: BP 151/90
--- NOTE | 2019-08-28 14:52 | EKG ---
[place] [address] ELECTROCARDIOGRAM REPORT Name: BARBIE BHATTI Kyle Room: [facility]#: [id number] Admission: 08/26/19 Attend Phys: Discharge: 08/27/19 Date of : 75 Date of Service: 08/26/19 2323 Report #: [id number] THIS REPORT FOR: //name// [facility] ED Test Date: 2019-08-26 Test Time: 23:23:55 Pat Name: BARBIE BHATTI Department: Room: Gender: F Small Business Banking Officer: [place] : 1975 Requested By: Andria Stoll Order Number: [id number] Domingo MD: Jace Frausto Measurements Intervals [place] Rate: 92 P: 60 [place]: 131 QRS: 52 QRSD: 99 T: 55 QT: 352 QTc: 436 Interpretive Statements Sinus arrhythmia nonspecific t wave changes Probable left atrial enlargement Left ventricular hypertrophy Compared to ECG 11/13/2018 14:10:02 no change Electronically Signed On 08-28-2019 14:51:21 CDT by Jace Frausto [email or web address] <ELECTRONICALLY SIGNED> By: Jace Frausto MD, [facility] 08/28/19 1451 2323 2323 Jace Frausto MD, [facility] /EPI
== END 2019-08-27 05:35 | disposition short-term general hospital (02) ==
LOC: M.ERS 23:10
PROVIDERS: Emergency Medicine
DX: R10.33 Periumbilical pain (principal); R11.2 Nausea with vomiting, unspecified; I10 Essential (primary) hypertension; G89.29 Other chronic pain; Z98.890 Other specified postprocedural states; Z88.5 Allergy status to narcotic agent; Z88.6 Allergy status to analgesic agent; Z91.041 Radiographic dye allergy status; Z79.899 Other long term (current) drug therapy; Z98.51 Tubal ligation status